=== PATIENT | male | born 1980 ===

== ENCOUNTER → 2018-08-14 22:19 | Outpatient (REF) | payer OTHER, SELFPAY ==
[2018-08-14 22:22] LABS: Bacteria Urine None Seen; RBC Urine None Seen (0-5/HPF); WBC Urine None Seen (0-5/HPF)
[2018-08-14 22:26] LABS: Add Manual Diff / Slide Review NO; Basophils Percent Auto 0.5 % (0-2); Eosinophils Percent Auto 4.1 % (2-4); Hemoglobin 15.3 g/dL (13.5-17.5); Lymphocytes Percent Auto 39.6 % (25-40); Mean Corpuscular HGB Conc 34.1 % (30-36); Mean Corpuscular Hemoglobin 30.8 PG (26-34); Mean Corpuscular Volume 90.4 fL (80-100); Monocytes Percent Auto 7.3 % (3-14); Neutrophils Absolute Auto 2000 /uL (3000-5900); Neutrophils Percent Auto 48.5 % (50-75); Platelet Count 164 X10^3/uL (150-400); Red Blood Cell Count 4.98 X10^6/uL (4.5-5.9); Red Cell Distribution Width 12.5 % (11.6-14.8); White Blood Cell Count 4.1 X10^3/uL (4.5-11.0)
[2018-08-14 22:27] LABS: Appearance Urine UA CLEAR; Bilirubin Urine UA NEGATIVE (NEGATIVE); Color Urine UA YELLOW; Glucose Urine UA NEGATIVE (Normal); Ketones Urine UA NEGATIVE (NEGATIVE); Leukocyte Esterase Urine UA NEGATIVE (NEGATIVE); Nitrite Urine UA NEGATIVE (Negative); Occult Blood Urine UA NEGATIVE (Negative); Protein Urine UA NEGATIVE (Negative); Specific Gravity Urine UA 1.015 (1.000-1.035); Urobilinogen Urine UA 0.2 E.U./dL (0.2)
[2018-08-14 22:32] LABS: Alanine Aminotransferase 32 IU/L (21-72); Albumin 4.4 g/dL (3.5-5.0); Albumin Globulin Ratio 1.8 (1.0-2.8); Alkaline Phosphatase 45 U/L (38-126); Aspartate Aminotransferase 20 IU/L (17-59); BUN Creatinine Ratio 17.5 (6-22); Bilirubin Total 0.8 mg/dL (0.2-1.3); Blood Urea Nitrogen 14 mg/dL (9-20); Calcium 9.1 mg/dL (8.4-10.2); Carbon Dioxide 31 mmol/L (22-32); Chloride 100 mmol/L (98-107); Cholesterol 154 mg/dL (140-199); Estimated Glomerular Filt Rate > 60.0 mL/min (>60); Globulin 2.5 g/dL (1.7-4.1); Glucose 95 mg/dL (70-100); HDL Cholesterol 40 mg/dL (40-60); HEMOLYSIS < 15 (0-50); LDL Cholesterol Calculated 103 mg/dL (<100); Potassium 3.7 mmol/L (3.4-5.1); Sodium 142 mmol/L (137-145); Total Protein 6.9 g/dL (6.3-8.2); Triglycerides 53 mg/dL (35-150)
[2018-08-14 23:03] LABS: TSH w/ Reflex to FT4 1.37 uIU/mL (0.47-4.68)
[2018-08-14 23:07] LABS: Ferritin 91.8 ng/mL (17.9-464)
[2018-08-14 23:18] LABS: Culture Indicated Urine Cult Not Indicated; Urine Comments Microscopic Normal
== END ==
LOC: LAB 22:19
PROVIDERS: Visit Provider Naturopath
DX: Z00.00 Encounter for general adult medical examination without abnormal findings (principal)
CPT/HCPCS: 80053; 80061; 81001; 82728; 84443; 85025